=== PATIENT | male | born 1965 | race Caucasian/White ===

== ENCOUNTER 2018-10-06 08:07 | Day surgery (SDC) | payer OTHER ==
[~2018-10-06] VITALS: Ht 190.5 cm; Wt 168.2 kg
[2018-10-06] MEDS ORDERED: FLEC100T PO (09:02)
[2018-10-06] MEDS ORDERED: METO-93 PO (09:02)
[2018-10-06] MEDS ORDERED: FLUT15.88 INH (09:02)
[2018-10-06] MEDS ORDERED: FENO134C PO (09:02)
[2018-10-06] MEDS ORDERED: LOSA100T14 PO (09:02)
[2018-10-06] MEDS ORDERED: RIVA20TA PO (09:02)
[2018-10-06] MEDS ORDERED: IPRA30SP INH (09:02)
[2018-10-06] MEDS ORDERED: TRAZ50TA66 PO (09:02)
[2018-10-06 09:05] VITALS: BP 153/118
== END 2018-10-06 11:25 | disposition home or self-care (01) ==
LOC: CACL 08:07
PROVIDERS: ATTEND Internal Medicine Cardiovascular Disease
DX: I48.0 Paroxysmal atrial fibrillation (principal); I11.0 Hypertensive heart disease with heart failure; I50.20 Unspecified systolic (congestive) heart failure; J45.909 Unspecified asthma, uncomplicated; G47.30 Sleep apnea, unspecified; E78.5 Hyperlipidemia, unspecified; Z79.01 Long term (current) use of anticoagulants; Z79.51 Long term (current) use of inhaled steroids; Z79.899 Other long term (current) drug therapy; Z72.89 Other problems related to lifestyle; Z83.3 Family history of diabetes mellitus; Z82.49 Family history of ischemic heart disease and other diseases of the circulatory system
CPT/HCPCS: 92960; 93005

== ENCOUNTER → 2019-05-03 | Outpatient (CLI) | payer OTHER ==
[~2019-05-03] MED LIST: ALBU8.5H8 INH; AZEL6DRO2 EACHEYE; DILT360C10 PO; FENO134C PO; FLEC100T PO; FLUT15.845 INH; FURO20TA3 PO; IPRA15SP NAS; IPRA30SP INH; LOSA100T14 PO; METO-93 PO; OMEP20TA62 PO; RIVA20TA PO; TRAZ50TA66 PO
== END | disposition home or self-care (01) ==
LOC: RAD 15:22
PROVIDERS: ATTEND Nurse Practitioner Family
DX: G47.33 Obstructive sleep apnea (adult) (pediatric) (principal); E78.5 Hyperlipidemia, unspecified; I10 Essential (primary) hypertension; I48.91 Unspecified atrial fibrillation
CPT/HCPCS: 71046

== ENCOUNTER 2019-05-17 06:16 | Observation (INO) | payer OTHER ==
[2019-05-16 15:34] VITALS: BP 139/79
[2019-05-16 15:36] LABS: BASOPHILS # (AUTO) 0.05 x10^3/uL (0-0.1); BASOPHILS % (AUTO) 1 % (0-1); EOSINOPHILS # (AUTO) 0.22 x10^3/uL (0-0.4); EOSINOPHILS % (AUTO) 3 % (1-7); LYMPHOCYTES # (AUTO) 2.11 x10^3/uL (1-3.4); LYMPHOCYTES % (AUTO) 25 % (22-44); MD NO; MEAN CORPUSCULAR HEMOGLOBIN 31.4 pg (27.5-34.5); MEAN CORPUSCULAR HGB CONC 33.5 g/dL (33.2-36.2); MEAN CORPUSCULAR VOLUME 93.8 fL (81-97); MEAN PLATELET VOLUME 10.3 fL (7.4-10.4); MONOCYTES # (AUTO) 0.84 x10^3/uL (0.2-0.8); MONOCYTES % (AUTO) 10 % (2-9); NEUTROPHILS # (AUTO) 5.12 x10^3/uL (1.8-6.8); NEUTROPHILS % (AUTO) 61 % (42-75); PLATELET COUNT 214 x10^3/uL (130-400); RED BLOOD COUNT 5.51 x10^6/uL (4.38-5.82); RED CELL DISTRIBUTION WIDTH 13.3 % (9.4-14.8)
[2019-05-16 15:46] LABS: ALANINE AMINOTRANSFERASE 46 U/L (12-78); ALBUMIN 3.8 g/dL (3.4-5.0); ANION GAP 6 mmol/L (5-15); CHLORIDE 109 mmol/L (98-107); CREATININE 1.28 mg/dL (0.7-1.3)
[2019-05-16 15:48] LABS: ALKALINE PHOSPHATASE 64 U/L (45-117); BILIRUBIN,TOTAL 0.6 mg/dL (0.2-1.0); TOTAL PROTEIN 7.2 g/dL (6.4-8.2)
[~2019-05-17] VITALS: Ht 190.5 cm; Wt 151.3 kg
[~2019-05-17 06:16] MED LIST changes: +AMIO100T4 PO; +AZEL137S4 NAS
[2019-05-17] MEDS ORDERED: SODIUM CHLORIDE 0.9% 1,000 ML IV SCH (06:36)
[2019-05-17] MEDS ORDERED: PHENYLEPHRINE 10 MG/ML ONE (07:40)
[2019-05-17] MEDS ORDERED: ROCURONIUM 10MG/ML,5ML ONE (07:40)
[2019-05-17] MEDS ORDERED: SUCCINYLCHOLINE 20 MG/ML, 10ML ONE (07:40)
[2019-05-17] MEDS ORDERED: PROPOFOL 10 MG/ML, 20ML ONE (07:40)
[2019-05-17] MEDS ORDERED: LIDOCAINE-MPF 2% ,5ML ONE (07:40)
[2019-05-17] MEDS ORDERED: HEPARIN 1,000 UNITS/ML, 10ML ONE ×3 (07:40→11:12)
[2019-05-17] MEDS ORDERED: DEXAMETHASONE 4 MG/ML, 1ML ONE ×2 (07:40)
[2019-05-17] MEDS ORDERED: MIDAZOLAM 1 MG/ML, 2ML ONE (07:43)
[2019-05-17] MEDS ORDERED: FENTANYL PF 100 MCG/2ML ONE ×2 (07:43→09:56)
[2019-05-17] MEDS ORDERED: LIDOCAINE GEL 2%, 5ML ONE (07:45)
[2019-05-17] MEDS ORDERED: HYDROmorphone 2 MG/ML, 1ML IVPush PRN (08:00)
[2019-05-17] MEDS ORDERED: PROMETHAZINE 25 MG/ML, 1ML IV PRN (08:00)
[2019-05-17] MEDS ORDERED: LABETALOL 5MG/ML, 20ML IV PRN (08:00)
[2019-05-17] MEDS ORDERED: OXYcodone 5 MG/5 ML ORAL.SOL UDC PO PRN (08:00)
[2019-05-17] MEDS ORDERED: ACETAMINOPHEN 325 MG TABLET PO PRN ×2 (08:00→10:30)
[2019-05-17] MEDS ORDERED: hydrALAzine 20 MG/ML, 1ML IV PRN (08:00)
[2019-05-17] MEDS ORDERED: MEPERIDINE/PF 25MG/ML,1ML IVPush PRN (08:00)
[2019-05-17] MEDS ORDERED: EPHEDRINE 50 MG/ML, 1ML IVPush PRN (08:00)
[2019-05-17] MEDS ORDERED: FENTANYL PF 100 MCG/2ML IV PRN (08:00)
[2019-05-17] MEDS ORDERED: ONDANSETRON 2MG/ML, 2ML IV PRN (08:00)
[2019-05-17] MEDS ORDERED: LIDOCAINE 2%, 20ML ONE (08:09)
[2019-05-17] MEDS ORDERED: RIVAROXABAN 20 MG TABLET ONE (08:18)
[2019-05-17] MEDS ORDERED: KETOROLAC 30 MG/1 ML ONE (08:24)
[2019-05-17] MEDS ORDERED: ONDANSETRON 2MG/ML, 2ML ONE (08:24)
[2019-05-17] MEDS ORDERED: NEOSTIGMINE 1 MG/ML, 10ML ONE (09:14)
[2019-05-17] MEDS ORDERED: GLYCOPYRROLATE 0.2MG/1ML, 5ML ONE (09:14)
[2019-05-17] MEDS ORDERED: FUROSEMIDE 20 MG TABLET PO SCH (10:30)
[2019-05-17] MEDS ORDERED: IPRATROPIUM BROMIDE NAS SCH (10:30)
[2019-05-17] MEDS ORDERED: RIVAROXABAN 20 MG TABLET PO SCH ×2 (10:30→17:00)
[2019-05-17] MEDS: TRAZODONE 50MG TABLET PO SCH ×2 (16:00→20:46)
[2019-05-17 19:00] VITALS: BP 144/77
[2019-05-18 01:26] VITALS: BP 131/80
[2019-05-18] MEDS ORDERED: RIVAROXABAN 20 MG TABLET PO SCH ×2 (07:00)
[2019-05-18 08:00] VITALS: BP 125/74
[2019-05-18] MEDS: TRAZODONE 50MG TABLET PO SCH (08:44)
[2019-05-18] MEDS ORDERED: AZELASTINE HCL 137 MCG/0.137 ML NAS SCH (09:00)
[2019-05-18] MEDS ORDERED: FENOFIBRATE 145 MG TABLET PO SCH (09:00)
== END 2019-05-18 11:35 | disposition home or self-care (01) ==
LOC: CACL 06:16 → ORIP 10:02 → 5SO 15:23 → DCLOUNGE 05-18 11:30
PROVIDERS: ADMIT Internal Medicine Cardiovascular Disease; ATTEND Internal Medicine Cardiovascular Disease
DX: I48.91 Unspecified atrial fibrillation (principal); I48.92 Unspecified atrial flutter; I10 Essential (primary) hypertension; E78.5 Hyperlipidemia, unspecified; E66.9 Obesity, unspecified; G47.33 Obstructive sleep apnea (adult) (pediatric); Z68.41 Body mass index [BMI] 40.0-44.9, adult; Z79.899 Other long term (current) drug therapy
CPT/HCPCS: 36415; 71046; 80053; 85025; 85347; 93306; 93613; 93656; 93657; 93662; C1730; C1732; C1759; C1766; C1769; C1893; C1894; G0378; J0330; J1100; J1644; J1885; J2250; J2370; J2405; J2704; J2710; J3010; J3490